=== PATIENT | male | born 1960 | race Caucasian/White ===

== ENCOUNTER 2019-02-22 06:30 | Emergency (ER) | payer OTHER ==
[2019-02-22] MEDS ORDERED: Sodium Chloride 0.9% 10 ML Syringe FLUSH PRN ×2 (07:24→08:05)
[2019-02-22] MEDS ORDERED: HYDROmorphone 1 MG/ML Syringe IVPUSH ONE (07:25)
[2019-02-22] MEDS ORDERED: Ondansetron 4 MG/2 ML SDV IVPUSH ONE (07:25)
--- NOTE | 2019-02-22 07:32 | EDM.PDOC ---
ED HPI GENERAL MEDICAL PROBLEM - General Chief Complaint: Back Pain or Injury Stated Complaint: 4 JOHNSTON ACCIDENT Time Seen by Provider: 02/22/19 07:30 Source of Information: Reports: Patient History Limitations: Reports: No Limitations - History of Present Illness INITIAL COMMENTS - FREE TEXT/NARRATIVE: pt was unloading a 4 johnston at 545 this am and he had the 4 johnston come down off of the pickup onto him . He injured his chest and he is having pain in his mid thoracic spine. He hurts alot when he takes a deep breath. Onset: Today, Sudden Duration: Hour(s): Location: Reports: Chest, Abdomen, Back Associated Symptoms: Reports: Chest Pain, Shortness of Breath, Other (pt has the sensation that he was not able to take a deep breath. ) Back Pain Score (Numeric/FACES): 10 - Related Data Allergies Allergy/AdvReac Type Severity Reaction Status Date / Time No Known Allergies Allergy Verified 02/22/19 06:46 Home Meds: Home Meds Aspirin [Ecotrin EC] 81 mg PO DAILY 02/22/19 [History] Famotidine [Pepcid] 20 mg PO DAILY 02/22/19 [History] Gabapentin [Neurontin] 1 cap PO BEDTIME 02/22/19 [History] Losartan/Hydrochlorothiazide [Hyzaar 50-12.5 Tablet] 1 each PO DAILY 02/22/19 [ History] atorvaSTATin [Lipitor] 20 mg PO BEDTIME 02/22/19 [History] metFORMIN HCl [Metformin HCl ER] 500 mg PO BID 02/22/19 [History] Past Medical History HEENT History: Reports: Impaired Vision Cardiovascular History: Reports: High Cholesterol, Hypertension Gastrointestinal History: Reports: GERD Musculoskeletal History: Reports: Fracture Other Musculoskeletal History: Ezra r lower leg with screw. thumb fx r hand, knee cap , ankle wrist pelvis. Endocrine/Metabolic History: Reports: Diabetes, Type II Oncologic (Cancer) History: Reports: Other (See Below) Other Oncologic History: slyiva gland removed as child for possible CA, - Infectious Disease History Infectious Disease History: Reports: Chicken Pox, Measles, Mumps - Past Surgical History GI Surgical History: Reports: Cholecystectomy, EGD Social & Family History - Tobacco Use Smoking Status *Q: Never Smoker Second Hand Smoke Exposure: No - Caffeine Use Caffeine Use: Reports: Soda - Recreational Drug Use Recreational Drug Use: No ED ROS GENERAL - Review of Systems Review Of Systems: See Below Constitutional: Reports: No Symptoms HEENT: Reports: No Symptoms Respiratory: Reports: Pleuritic Chest Pain, Other (pt is having alot of discomfort when he takes a deep breath. ) Cardiovascular: Reports: No Symptoms Endocrine: Reports: No Symptoms GI/Abdominal: Reports: Other (pt is having upper abdomanal pain) : Reports: No Symptoms Musculoskeletal: Reports: Back Pain, Other (pt is having pain between the shoulder blades. ) Skin: Reports: No Symptoms Neurological: Reports: No Symptoms Psychiatric: Reports: No Symptoms, Anxiety ED EXAM, UPPER BACK/NECK PAIN - Physical Exam Exam: See Below Text/Narrative:: pt had a 4 johnston come on top of his chest and his abdoman. He is now having alot of pain when he takes a deep breath. He is not vomiting. He hurt sin the upper abdoman. Exam Limited By: No Limitations General Appearance: Alert, Anxious, Moderate Distress Ears Exam: Normal TMs Nose Exam: Normal Inspection Throat/Mouth Exam: Normal Inspection Head Exam: Atraumatic Neck Exam: Non-Tender Cardiovascular/Respiratory: Regular Rate, Rhythm, Other (pt has good breath sounds bilaterally. ) GI/Abdominal: Soft, Tender (Male) Exam: Deferred Rectal (Males) Exam: Normal Exam Back Exam: Other (pt is tender from the mid thoracic down to the upper lumbar. ) Extremities: Normal Inspection Neurologic: Alert, Oriented x 3 Psychiatric: Anxious Course - Vital Signs Last Recorded V/S: Last Vital Signs Temp 37.1 C 02/22/19 06:48 Pulse 94 02/22/19 09:16 Resp 15 02/22/19 09:16 BP 133/84 02/22/19 09:16 Pulse Ox 97 02/22/19 09:16 - Orders/Labs/Meds Orders: Active Orders 24 hr Category Date Time Status Saline Lock Insert [OM.PC] Routine Oth 02/22/19 07:24 Ordered Labs: Laboratory Tests 02/22/19 02/22/19 02/22/19 Range/Units 07:29 07:46 07:46 WBC 7.4 (4.5-11.0) K/uL RBC 5.21 (4.30-5.90) M/uL Hgb 14.9 (12.0-15.0) g/dL Hct 45.2 (40.0-54.0) % MCV 87 (80-98) fL MCH 29 (27-31) pg MCHC 33 (32-36) % Plt Count 198 (150-400) K/uL Neut % (Auto) 71 H (36-66) % Lymph % (Auto) 14 L (24-44) % [place] % (Auto) 11 H (2-6) % Eos % (Auto) 4 (2-4) % Baso % (Auto) 1 (0-1) % Sodium 139 L (140-148) mmol/L Potassium 3.6 (3.6-5.2) mmol/L Chloride 101 (100-108) mmol/L Carbon Dioxide 26 (21-32) mmol/L Anion Gap 15.6 H (5.0-14.0) mmol/L BUN 11 (7-18) mg/dL Creatinine 1.0 (0.8-1.3) mg/dL Est Cr Clr Drug Dosing 58.33 mL/min Estimated GFR (MDRD) > 60 (>60) BUN/Creatinine Ratio Not Reportable Glucose 194 H (74-106) mg/dL Calcium 9.1 (8.5-10.1) mg/dL Total Bilirubin 1.2 H (0.2-1.0) mg/dL AST 40 H (15-37) U/L ALT 66 (12-78) U/L Alkaline Phosphatase 75 (46-116) U/L Total Protein 7.8 (6.4-8.2) g/dL Albumin 4.0 (3.4-5.0) g/dL Globulin 3.8 H (2.3-3.5) g/dL Albumin/Globulin Ratio 1.1 L (1.2-2.2) Urine Color Yellow (YELLOW) Urine Appearance Clear (CLEAR) Urine pH 5.5 (5.0-8.0) Ur Specific [place] 1.025 (1.008-1.030) Urine Protein 30 H (NEGATIVE) mg/dL Urine Glucose (UA) Negative (NEGATIVE) mg/dL Urine Ketones Negative (NEGATIVE) mg/dL Urine Occult Blood Negative (NEGATIVE) Urine Nitrite Negative (NEGATIVE) Urine Bilirubin Negative (NEGATIVE) Urine Urobilinogen 0.2 (0.2-1.0) EU/dL Ur Leukocyte Esterase Negative (NEGATIVE) Urine RBC 0-5 (0-5) Urine WBC 0-5 (0-5) Ur Epithelial Cells Few Amorphous Sediment Not seen Urine Bacteria Few Urine Mucus Not seen Meds: Medications Discontinued Medications Generic Name Dose Route Start Last Admin Trade Name Eddyq PRN Reason Stop Dose Admin Hydromorphone HCl 1 mg 02/22/19 07:25 02/22/19 07:43 Dilaudid IVPUSH 02/22/19 07:26 1 mg ONETIME ONE Administration Hydromorphone HCl 0.5 mg 02/22/19 09:22 02/22/19 09:31 Dilaudid IVPUSH 02/22/19 09:23 0.5 mg ONETIME ONE Administration Sodium Chloride 85 mls @ 3.5 mls/sec 02/22/19 08:15 02/22/19 08:44 Normal Saline IV 02/22/19 08:16 3.5 mls/sec ASDIRECTED ALYSHA Administration Iopamidol 150 ml 02/22/19 08:05 02/22/19 08:46 Isovue-300 (61%) IV 02/23/19 08:06 150 ml . DIRECTED PRN Administration RADIOLOGY EXAM Ketorolac Tromethamine 30 mg 02/22/19 10:32 02/22/19 10:38 Toradol IVPUSH 02/22/19 10:33 30 mg ONETIME ONE Administration Ondansetron HCl 4 mg 02/22/19 07:25 02/22/19 07:37 Zofran IVPUSH 02/22/19 07:26 4 mg ONETIME ONE Administration Sodium Chloride 10 ml 02/22/19 07:24 02/22/19 07:58 Saline Flush FLUSH 10 ml ASDIRECTED PRN Administration Keep Vein Open Sodium Chloride 10 ml 02/22/19 08:05 02/22/19 08:41 Saline Flush FLUSH 02/22/19 08:06 10 ml ONETIME PRN Administration per radiology protocol - Re-Assessments/Exams Free Text/Narrative Re-Assessment/Exam: 02/22/19 10:43 cat scan of the chest abdoman and pelvis was done which was neg. The thoracic spine was formated and did not reveal any fractures. He has been given dilaudid and he is more comfortable. Departure - Departure Time of Disposition: 10:32 Disposition: Home, Self-Care 01 Condition: Fair Clinical Impression: Chest wall pain, Thoracic spine pain - Discharge Information Instructions: Chest Wall Pain, [id number], Thoracic Strain, [id number] Referrals: PCP,None [Primary Care Provider] - Forms: ED Department Discharge Care Plan Goals: Motrin 600mg tid, baclofin 10mg bid to relax muscles, percocet 5/325 q6h prn for pain rtc if further symptoms,incenive spirometer use several times daily. no work for the next 4 days, - My Orders Last 24 Hours: My Active Orders 02/22/19 07:24 Saline Lock Insert [OM.PC] Routine - Assessment/Plan Last 24 Hours: My Active Orders 02/22/19 07:24 Saline Lock Insert [OM.PC] Routine
[2019-02-22] MEDS ORDERED: Iopamidol 612 MG/ML 150 ML Bottle IV PRN (08:05)
[2019-02-22] MEDS ORDERED: HYDROmorphone 0.5 MG/0.5 ML Syringe IVPUSH ONE (09:22)
--- NOTE | 2019-02-22 09:50 | CRLCT ---
Indication: 4 LANDEROS LANDED ON CHEST AND ABDOMEN Comparison: None available. Technique: CT of the chest, abdomen, and pelvis with intravenous contrast. Findings: No thoracic or abdominal aortic aneurysm. No dissection in the transverse, descending, or abdominal aorta. There is a much motion in the ascending aorta to evaluate for dissection. Mild atherosclerotic disease. The proximal arteries are patent. No pericardial effusion. No pleural effusion or pneumothorax. No central pulmonary artery embolism. No significant pulmonary opacities. The liver is normal in appearance without focal abnormalities. No intra or extrahepatic biliary ductal dilatation. Post cholecystectomy. The spleen, pancreas and bilateral adrenal glands appear unremarkable. The kidneys enhance symmetrically and there is no hydronephrosis. No evidence of bowel obstruction. No focal or diffuse bowel wall thickening. No free air or free fluid in the abdomen or pelvis. No significant retroperiteonal, pelvic, mesenteric, or inguinal lymphadenopathy. Bladder is normal. No aggressive appearing osseous lesions. Chronic dystrophic calcification at or near the anterior iliac spine most likely due to a prior avulsion injury. Impression: No definite acute traumatic injury to the chest, abdomen, or pelvis. Please note that all CT scans at this facility use dose modulation, iterative reconstruction, and/or weight-based dosing when appropriate to reduce radiation dose to as low as reasonably achievable. Dictated by Mainor Bernabe MD @ Feb 22 2019 9:34AM (Electronically Signed)
--- NOTE | 2019-02-22 09:58 | CRLCT ---
INDICATION: Four johnston landed on the chest. Pain. COMPARISON: None available. TECHNIQUE: CT of the thoracic spine. FINDINGS: Mild multi focal degenerative changes of the thoracic spine. No acute thoracic spine fracture. No listhesis. IMPRESSION: No acute fracture or listhesis of the thoracic spine. Please note that all CT scans at this facility use dose modulation, iterative reconstruction, and/or weight-based dosing when appropriate to reduce radiation dose to as low as reasonably achievable. Dictated by Mainor Bernabe MD @ Feb 22 2019 9:52AM (Electronically Signed)
[2019-02-22] MEDS ORDERED: Ketorolac 30 MG/ML SDV IVPUSH ONE (10:32)
== END 2019-02-22 10:50 | disposition home or self-care (01) ==
LOC: JP.ED 06:30
DX: R07.89 Other chest pain (principal); M54.6 Pain in thoracic spine; E78.00 Pure hypercholesterolemia, unspecified; I10 Essential (primary) hypertension; E11.9 Type 2 diabetes mellitus without complications; Z79.82 Long term (current) use of aspirin; Z79.899 Other long term (current) drug therapy; Z79.84 Long term (current) use of oral hypoglycemic drugs; W22.8XXA Striking against or struck by other objects, initial encounter; Y93.89 Activity, other specified
CPT/HCPCS: 36415; 71260; 74177; 76377; 80053; 81001; 85025; 96374; 96375; 96376; 99285; J1170; J1885; J2405; J7030

== ENCOUNTER 2020-09-04 19:29 | Emergency (ER) | payer OTHER ==
[2020-09-04] MEDS ORDERED: Acetaminophen 500 MG Tab PO ONE (20:58)
--- NOTE | 2020-09-04 20:59 | EDM.PDOC ---
ED HPI GENERAL MEDICAL PROBLEM - General Chief Complaint: ENT Problem Stated Complaint: L SIDE FACE SWOLLEN / PAINFUL Time Seen by Provider: 09/04/20 20:45 Source of Information: Reports: Patient, RN Notes Reviewed History Limitations: Reports: No Limitations - History of Present Illness INITIAL COMMENTS - FREE TEXT/NARRATIVE: Higinio presents today for complaints of pain and edema to left side fo face for three days. He reports the pain and edema became much worse today. He states he has been taking ibuprofen 800mg for pain a few times a day without much help. He has tried use of ice for swelling. He denies difficulty with eating, drinking, swallowing, fever, chills, nausea, vomiting, change in bowel/bladder or other concerns. History of DM II, last A1C 7.9 Positive COVID19 test 10 days ago. Symptoms of sinus congestion and loss of taste/smell only. Left Face/Facial Pain Score (Numeric/FACES): 10 - Related Data Allergies Allergy/AdvReac Type Severity Reaction Status Date / Time No Known Allergies Allergy Verified 09/04/20 20:19 Home Meds: Home Meds Aspirin [Ecotrin EC] 81 mg PO DAILY 02/22/19 [History] Famotidine [Pepcid] 20 mg PO DAILY 02/22/19 [History] Gabapentin [Neurontin] 1 cap PO BEDTIME 02/22/19 [History] Losartan/Hydrochlorothiazide [Hyzaar 50-12.5 Tablet] 1 each PO DAILY 02/22/19 [History] atorvaSTATin [Lipitor] 20 mg PO BEDTIME 02/22/19 [History] metFORMIN HCl [Metformin HCl ER] 500 mg PO BID 02/22/19 [History] Past Medical History HEENT History: Reports: Impaired Vision Cardiovascular History: Reports: High Cholesterol, Hypertension Gastrointestinal History: Reports: GERD Musculoskeletal History: Reports: Fracture Other Musculoskeletal History: Ezra r lower leg with screw. thumb fx r hand, knee cap , ankle wrist pelvis. Endocrine/Metabolic History: Reports: Diabetes, Type II Oncologic (Cancer) History: Reports: Other (See Below) Other Oncologic History: slyiva gland removed as child for possible CA, - Infectious Disease History Infectious Disease History: Reports: Chicken Pox, Measles, Mumps, Novel Coronavirus - Past Surgical History GI Surgical History: Reports: Cholecystectomy, EGD Social & Family History - Tobacco Use Tobacco Use Status *Q: Never Tobacco User Second Hand Smoke Exposure: No - Caffeine Use Caffeine Use: Reports: Soda - Recreational Drug Use Recreational Drug Use: No ED ROS ENT - Review of Systems Review Of Systems: See Below Constitutional: Reports: No Symptoms HEENT: Reports: Dental Pain (left upper and lower jaw. ), Sinus Problem. Denies: Ear Discharge, Ear Pain, Eye Discharge, Nose Pain, Throat Pain, Throat Swelling Respiratory: Reports: No Symptoms Cardiovascular: Reports: No Symptoms Endocrine: Reports: No Symptoms GI/Abdominal: Reports: No Symptoms : Reports: No Symptoms Musculoskeletal: Reports: No Symptoms Skin: Reports: No Symptoms Neurological: Reports: No Symptoms Psychiatric: Reports: No Symptoms Hematologic/Lymphatic: Reports: No Symptoms Immunologic: Reports: No Symptoms ED EXAM, ENT - Physical Exam Exam: See Below Exam Limited By: No Limitations General Appearance: Alert, WD/WN, Mild Distress Eye Exam: Bilateral Eye: Normal Inspection, PERRL Ears: Normal External Exam, Normal Canal, Hearing Grossly Normal, TM Dullness (left TM, no perforation). No: Mastoid Swelling, Mastoid Tenderness, TM Bulging, TM Erythema Mouth/Throat: Normal Lips, Dental Tenderness, Gum Swelling, Other (noted gum edema, pain, tenderness left cheek, no lesions noted). No: Tongue Swelling, Tonsillar Erythema, Tonsillar Exudates, Tonsillar Swelling, Trismus, Uvular Deviation, Uvular Edema Head: Facial Swelling, Facial Tenderness (left face from cheek to upper neck). No: Facial Ecchymosis, Facial Lacerations Neck: Full Range of Motion, Lymphadenopathy (L) Respiratory/Chest: No Respiratory Distress, Lungs Clear, Normal Breath Sounds, No Accessory Muscle Use, Chest Non-Tender. No: Crackles, Rales, Rhonchi, Wheezing, Stridor Cardiovascular: Normal Peripheral Pulses, Regular Rate, Rhythm, No Edema, No Gallop, No Murmur, No Rub Back: Normal Inspection, Full Range of Motion. No: CVA Tenderness (R), CVA Tenderness (L), Decreased Range of Motion Extremities: Normal Inspection, Normal Range of Motion, Non-Tender, No Pedal Edema, Normal Capillary Refill Neurological: Alert, Oriented, Normal Cognition, Normal Gait, Normal Reflexes, No Motor/Sensory Deficits Psychiatric: Normal Affect, Normal Mood Skin: Warm, Dry, Erythema (left face/cheek) Lymphatic: No Adenopathy Course - Vital Signs Last Recorded V/S: Last Vital Signs Temp 36.5 C 09/04/20 20:26 Pulse 82 09/04/20 20:26 Resp 16 09/04/20 20:26 BP 184/93 H 09/04/20 20:26 Pulse Ox 98 09/04/20 20:26 Recheck BP 155/82 at 2130 - Orders/Labs/Meds Labs: Laboratory Tests 09/04/20 09/04/20 Range/Units 21:10 21:10 WBC 7.9 (4.5-11.0) K/uL RBC 5.14 (4.30-5.90) M/uL Hgb 14.6 (12.0-15.0) g/dL Hct 43.8 (40.0-54.0) % MCV 85 (80-98) fL MCH 28 (27-31) pg MCHC 33 (32-36) % Plt Count 216 (150-400) K/uL Neut % (Auto) 55.5 (36-66) % Lymph % (Auto) 32.6 (24-44) % [place] % (Auto) 8.5 H (2-6) % Eos % (Auto) 2.8 (2-4) % Baso % (Auto) 0.6 (0-1) % Sodium 144 (140-148) mmol/L Potassium 3.2 L (3.6-5.2) mmol/L Chloride 102 (100-108) mmol/L Carbon Dioxide 32 (21-32) mmol/L Anion Gap 13.2 (5.0-14.0) mmol/L BUN 10 (7-18) mg/dL Creatinine 1.0 (0.8-1.3) mg/dL Est Cr Clr Drug Dosing TNP Estimated GFR (MDRD) > 60 (>60) Glucose 124 H (74-106) mg/dL Calcium 9.0 (8.5-10.1) mg/dL CBC, BMP reviewed no acute findings noted. Reviewed with patient, he will start use of clindamycin and metronidazole as directed. NSAID and hydrocodone as directed for pain. Follow up with dental on Sunday for an appointment. Return as needed. Meds: Medications Discontinued Medications Generic Name Dose Route Start Last Admin Trade Name Freq PRN Reason Stop Dose Admin Acetaminophen 1,000 mg 09/04/20 20:58 09/04/20 21:17 Acetaminophen 500 Mg Tab PO 09/04/20 20:59 1,000 mg ONETIME ONE Administration Clindamycin HCl 300 mg 09/04/20 21:24 Clindamycin Hcl 150 Mg Cap PO 09/04/20 21:25 ONETIME ONE Metronidazole 500 mg 09/04/20 21:24 Metronidazole 250 Mg Tab PO 09/04/20 21:25 ONETIME ONE Departure - Departure Time of Disposition: 21:33 Disposition: Home, Self-Care 01 Condition: Good Clinical Impression: Dental abscess - Discharge Information *PRESCRIPTION DRUG MONITORING PROGRAM REVIEWED*: No *COPY OF PRESCRIPTION DRUG MONITORING REPORT IN PATIENT JUAN: No Instructions: Dental Abscess, [id number] Referrals: PCP,None [Primary Care Provider] - Forms: ED Department Discharge Additional Instructions: You have been evaluated and treated for a dental abscess. Lab work shows a localized infection. Potassium is low - eat two bananas per day for 3 days, drink two bottles sugar free gatorade a day for 5 days. Take clindamycin 300mg (two of the 150mg tablets) every 6 hours for infection until gone. Take metronidazole 500mg every 8 hours for infection until gone. Take Ibuprofen or naproxen as needed for pain with food. Take hydrocodone as directed, instymed fo #18 tablets for three days. Return for worsening, issues or concerns. Sepsis Event Note (ED) - Evaluation Sepsis Screening Result: No Definite Risk - Focused Exam Vital Signs: Vital Signs Temp Pulse Resp BP Pulse Ox 09/04/20 20:26 36.5 C 82 16 184/93 H 98 - Assessment/Plan Assessment:: Dental Abscess Plan: Patient evaluated and treated for a dental abscess. Take clindamycin 300mg (two of the 150mg tablets) every 6 hours for infection until gone. Take metronidazole 500mg every 8 hours for infection until gone. Take Ibuprofen or naproxen as needed for pain with food. Take hydrocodone as directed, instymed fo #18 tablets for three days. Education provided on signs of worsening, issues, difficulty breathing or other concerns. Patient verbalized understanding. Return for worsening, issues or concerns.
[2020-09-04] MEDS ORDERED: Clindamycin HCl 150 MG Cap PO ONE (21:24)
[2020-09-04] MEDS ORDERED: metroNIDAZOLE 250 MG Tab PO ONE (21:24)
== END 2020-09-04 21:48 | disposition home or self-care (01) ==
LOC: JP.ED 19:29
DX: K04.7 Periapical abscess without sinus (principal); E11.9 Type 2 diabetes mellitus without complications; E78.00 Pure hypercholesterolemia, unspecified; I10 Essential (primary) hypertension; K21.9 Gastro-esophageal reflux disease without esophagitis; Z79.84 Long term (current) use of oral hypoglycemic drugs; Z79.82 Long term (current) use of aspirin; Z79.899 Other long term (current) drug therapy
CPT/HCPCS: 36415; 80048; 85025; 99283; A9270

== ENCOUNTER 2021-04-05 12:28 | Emergency (ER) | payer OTHER ==
[2021-04-05] MEDS ORDERED: Ketorolac 30 MG/ML SDV IM ONE (12:59)
--- NOTE | 2021-04-05 13:08 | EDM.PDOC ---
ED HPI GENERAL MEDICAL PROBLEM - General Chief Complaint: Back Pain or Injury Stated Complaint: FELL AND HURT MID BACK Time Seen by Provider: 04/05/21 13:07 Source of Information: Reports: Patient, Family, RN Notes Reviewed History Limitations: Reports: No Limitations - History of Present Illness INITIAL COMMENTS - FREE TEXT/NARRATIVE: 60-year-old gentleman presents emergency department day complaint of mid back pain, he injured himself when he was going down the steps slipped landed in the middle of his back now is experiencing severe pain going around to the front difficult for him to take a big breath Middle Back Pain Score (Numeric/FACES): 10 - Related Data Allergies Allergy/AdvReac Type Severity Reaction Status Date / Time No Known Allergies Allergy Verified 04/05/21 13:01 Home Meds: Home Meds NK [No Known Home Meds] 04/05/21 [History] Past Medical History HEENT History: Reports: Impaired Vision Cardiovascular History: Reports: High Cholesterol, Hypertension Gastrointestinal History: Reports: GERD Musculoskeletal History: Reports: Fracture Other Musculoskeletal History: thumb fx r hand, knee cap , ankle wrist pelvis. Endocrine/Metabolic History: Reports: Diabetes, Type II Oncologic (Cancer) History: Reports: Other (See Below) Other Oncologic History: slyiva gland removed as child for possible CA, - Infectious Disease History Infectious Disease History: Reports: Chicken Pox, Measles, Mumps, Novel Coronavirus - Past Surgical History HEENT Surgical History: Reports: Other (See Below) Other HEENT Surgeries/Procedures: saliva gland removed on the left. GI Surgical History: Reports: Cholecystectomy, EGD Musculoskeletal Surgical History: Reports: Other (See Below) Other Musculoskeletal Surgeries/Procedures:: sanjiv in lower leg. Social & Family History - Tobacco Use Tobacco Use Status *Q: Never Tobacco User - Caffeine Use Caffeine Use: Reports: Soda - Recreational Drug Use Recreational Drug Use: No ED ROS GENERAL - Review of Systems Review Of Systems: See Below Respiratory: Reports: Other (Pain with a deep breath) Musculoskeletal: Reports: Back Pain ED EXAM,LOWER BACK PAIN/INJURY - Physical Exam Exam: See Below Text/Narrative:: Examination of the thorax on appreciate any erythema there is no edema there is no bruising noted however he is tender from approximately the T5 region to the T8 region spinally Exam Limited By: No Limitations General Appearance: Alert, Mild Distress Respiratory/Chest: No Respiratory Distress, Lungs Clear, Normal Breath Sounds, No Accessory Muscle Use Cardiovascular: Regular Rate, Rhythm, No Murmur Course - Vital Signs Last Recorded V/S: Last Vital Signs Temp 97.7 F 04/05/21 13:00 Pulse 85 04/05/21 15:00 Resp 15 04/05/21 13:00 BP 167/96 H 04/05/21 15:00 Pulse Ox 95 04/05/21 15:00 - Orders/Labs/Meds Meds: Medications Discontinued Medications Generic Name Dose Route Start Last Admin Trade Name Guero PRN Reason Stop Dose Admin Hydromorphone HCl 1 mg 04/05/21 14:19 04/05/21 14:54 Hydromorphone 1 Mg/Ml Syringe IM 04/05/21 14:20 1 mg ONETIME ONE Administration Ketorolac Tromethamine 30 mg 04/05/21 12:59 04/05/21 13:11 Ketorolac 30 Mg/Ml Sdv IM 04/05/21 13:00 30 mg ONETIME ONE Administration Departure - Departure Time of Disposition: 15:16 Disposition: Home, Self-Care 01 Condition: Fair Clinical Impression: Chest wall pain - Discharge Information Instructions: Chest Wall Pain, [id number] Referrals: PCP,None [Primary Care Provider] - Forms: ED Department Discharge Additional Instructions: Use ibuprofen for baseline pain control use hydrocodone for breakthrough pain, please followup with your primary care provider in 3-5 days if not better, please call return to the emergency department with worsening of symptoms. Sepsis Event Note (ED) - Evaluation Sepsis Screening Result: No Definite Risk - Focused Exam Vital Signs: Vital Signs Temp Pulse Resp BP Pulse Ox 04/05/21 15:00 85 167/96 H 95 04/05/21 14:14 82 162/98 H 95 04/05/21 13:00 97.7 F 81 15 191/101 H 96 04/05/21 12:46 97.7 F 81 15 191/101 H 96 - Assessment/Plan Plan: Assessment Acuity = acute Site and laterality = chest wall pain thoracic region Etiology = secondary to trauma Manifestations = none Location of injury = Home Lab values = thoracic x-ray reveals no fracture Plan I talked about the possibility of rib fracture that could not be identified on x-ray he is going to do watchful waiting pain was brought under control combination hydromorphone and Toradol prescription written for hydrocodone 5/325 1 tab p.o. 3 times daily as needed total #20 and follow-up with his primary care in the next 3 to 5 days if no improvement This note was dictated using [employer] voice recognition software please call with any questions on syntax or grammar.
--- NOTE | 2021-04-05 13:57 | CR ---
Thoracic Spine 2V CLINICAL HISTORY: Pain, T6-T8 FINDINGS: The vertebral bodies are normal in height. Disc spaces are narrowed. There is mild diffuse osteophytosis. There is moderate spondylosis at T12-L1. The pedicles are unremarkable. Impression: Diffuse degenerative disc changes with spondylosis
[2021-04-05] MEDS ORDERED: HYDROmorphone 1 MG/ML Syringe IM ONE (14:19)
== END 2021-04-05 15:53 | disposition home or self-care (01) ==
LOC: JP.ED 12:28
DX: R07.89 Other chest pain (principal); I10 Essential (primary) hypertension; E11.9 Type 2 diabetes mellitus without complications
CPT/HCPCS: 72070; 96372; 99283; J1170; J1885

== ENCOUNTER 2021-04-11 11:56 | Emergency (ER) | payer OTHER ==
--- NOTE | 2021-04-11 13:26 | EDM.PDOC ---
ED HPI GENERAL MEDICAL PROBLEM - General Chief Complaint: Back Pain or Injury Stated Complaint: MID BACK PAIN FROM FALL Time Seen by Provider: 04/11/21 13:16 Source of Information: Reports: Patient, RN Notes Reviewed History Limitations: Reports: No Limitations - History of Present Illness INITIAL COMMENTS - FREE TEXT/NARRATIVE: 60-year-old gentleman presents emergency department day complaint of chest pain he does have a history of a fall about a week ago where he fell and landed on the middle of his back thoracic x-rays at that time were negative but the thing that he has noticed now is he is developed some swelling in his lower extremities bilaterally over the last 3 to 4 days., He has felt nauseated no fevers 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 AT 06 00 TODAY Middle Posterior Back Pain Score (Numeric/FACES): 10 - Related Data Allergies Allergy/AdvReac Type Severity Reaction Status Date / Time No Known Allergies Allergy Verified 04/11/21 12:53 Home Meds: Home Meds Acetaminophen/HYDROcodone [HYDROcodone-Acetaminophen 5-325 MG *] 1 tab PO Q4H PRN 04/11/21 [History] Past Medical History HEENT History: Reports: Impaired Vision Cardiovascular History: Reports: High Cholesterol, Hypertension Gastrointestinal History: Reports: GERD Musculoskeletal History: Reports: Fracture Other Musculoskeletal History: thumb fx r hand, knee cap , ankle wrist pelvis. 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 Cardiovascular Surgical History: Reports: None GI Surgical History: Reports: Cholecystectomy, EGD Endocrine Surgical History: Reports: None Neurological Surgical History: Reports: None Musculoskeletal Surgical History: Reports: Other (See Below) Other Musculoskeletal Surgeries/Procedures:: sanjiv in lower leg. Oncologic Surgical History: Reports: None Dermatological Surgical History: Reports: None Social & Family History - Family History Family Medical History: No Pertinent Family History - Tobacco Use Tobacco Use Status *Q: Former Tobacco User Used Tobacco, but Quit: Yes Month/Year Tobacco Last Used: 1984 - Caffeine Use Caffeine Use: Reports: Soda - Recreational Drug Use Recreational Drug Use: No ED ROS GENERAL - Review of Systems Review Of Systems: See Below Constitutional: Reports: No Symptoms Respiratory: Reports: Shortness of Breath Cardiovascular: Reports: Chest Pain, Edema GI/Abdominal: Reports: Nausea ED EXAM, GENERAL - Physical Exam Exam: See Below Exam Limited By: No Limitations General Appearance: Alert, WD/WN, No Apparent Distress Respiratory/Chest: No Respiratory Distress, Lungs Clear, Normal Breath Sounds, No Accessory Muscle Use, Chest Non-Tender Cardiovascular: Regular Rate, Rhythm, No Murmur GI/Abdominal: Soft, Non-Tender Extremities: Pedal Edema #1 Interpretation EKG Date: 04/11/21 Time: 13:35 Rhythm: NSR [place]: Normal P-Wave: Present QRS: Normal ST-T: Normal QT: Normal Comparison: NA - No Prior EKG Course - Vital Signs Last Recorded V/S: Last Vital Signs Temp 97.3 F 04/11/21 12:28 Pulse 78 04/11/21 16:17 Resp 19 04/11/21 16:17 BP 185/92 H 04/11/21 16:17 Pulse Ox 94 L 04/11/21 16:17 - Orders/Labs/Meds Orders: Active Orders 24 hr Category Date Time Status Cardiac Monitoring [RC] .As Directed Care 04/11/21 13:22 Active Peripheral IV Care [RC] . DIRECTED Care 04/11/21 13:23 Active Chest w Cont [CT] Stat Exams 04/11/21 15:05 Taken Iopamidol [Isovue-300 (61%)] Med 04/11/21 15:09 Active 100 ml IV . DIRECTED PRN Sodium Chloride 0.9% [Normal Saline] 1,000 ml Med 04/11/21 15:15 Active IV ASDIRECTED Sodium Chloride 0.9% [Normal Saline] 100 ml Med 04/11/21 15:15 Active IV ASDIRECTED Sodium Chloride 0.9% [Saline Flush] Med 04/11/21 13:22 Active 10 ml FLUSH ASDIRECTED PRN Peripheral IV Insertion Adult [OM.PC] Stat Oth 04/11/21 13:22 Ordered Saline Lock Insert [OM.PC] Stat Oth 04/11/21 13:22 Ordered EKG 12 Lead [EK] Stat Ther 04/11/21 13:23 Ordered Medication Orders Sodium Chloride (Normal Saline) 1,000 mls @ 500 mls/hr IV ASDIRECTED ALYSHA Sodium Chloride (Normal Saline) 100 mls @ 3 mls/sec IV ASDIRECTED ALYSHA Stop: 04/11/21 18:00 Last Admin: 04/11/21 15:22 Dose: 3 mls/sec Documented by: ALLEGRA Iopamidol (Iopamidol 612 Mg/Ml 100 Ml Bottle) 100 ml IV . DIRECTED PRN PRN Reason: RADIOLOGY EXAM Stop: 04/12/21 15:10 Last Admin: 04/11/21 15:22 Dose: 100 ml Documented by: ALLEGRA Sodium Chloride (Sodium Chloride 0.9% 10 Ml Syringe) 10 ml FLUSH ASDIRECTED PRN PRN Reason: Keep Vein Open Last Admin: 04/11/21 15:22 Dose: 10 ml Documented by: Admin: 04/11/21 13:53 Dose: 10 ml Documented by: Admin: 04/11/21 13:43 Dose: 10 ml Documented by: BALDO Labs: Laboratory Tests 04/11/21 04/11/21 04/11/21 Range/Units 13:40 13:40 13:40 WBC 8.3 (4.5-11.0) K/uL RBC 5.55 (4.30-5.90) M/uL Hgb 15.7 H (12.0-15.0) g/dL Hct 46.2 (40.0-54.0) % MCV 83 (80-98) fL MCH 28 (27-31) pg MCHC 34 (32-36) % Plt Count 214 (150-400) K/uL Neut % (Auto) 54.5 (36-66) % Lymph % (Auto) 33.9 (24-44) % [place] % (Auto) 7.2 H (2-6) % Eos % (Auto) 3.4 (2-4) % Baso % (Auto) 1.0 (0-1) % Sodium 138 L (140-148) mmol/L Potassium 3.7 (3.6-5.2) mmol/L Chloride 100 (100-108) mmol/L Carbon Dioxide 30 (21-32) mmol/L Anion Gap 11.7 (5.0-14.0) mmol/L BUN 14 (7-18) mg/dL Creatinine 1.1 (0.8-1.3) mg/dL Est Cr Clr Drug Dosing 70.82 mL/min Estimated GFR (MDRD) > 60 (>60) Glucose 220 H (74-106) mg/dL Lactic Acid 1.1 (0.4-2.0) mmol/L Calcium 9.0 (8.5-10.1) mg/dL Total Bilirubin 1.1 H (0.2-1.0) mg/dL AST 22 (15-37) U/L ALT 43 (12-78) U/L Alkaline Phosphatase 68 (46-116) U/L Troponin I High Sens 7.0 (<=60.3) pg/mL NT-Pro-B Natriuret Pep 89 (5-125) pg/mL Total Protein 7.3 (6.4-8.2) g/dL Albumin 3.9 (3.4-5.0) g/dL Globulin 3.4 (2.3-3.5) g/dL Albumin/Globulin Ratio 1.1 L (1.2-2.2) Meds: Medications Generic Name Dose Route Start Last Admin Trade Name Freq PRN Reason Stop Dose Admin Sodium Chloride 1,000 mls @ 500 mls/hr 04/11/21 15:15 Normal Saline IV ASDIRECTED ALYSHA Sodium Chloride 100 mls @ 3 mls/sec 04/11/21 15:15 04/11/21 15:22 Normal Saline IV 04/11/21 18:00 3 mls/sec ASDIRECTED ALYSHA Administration Iopamidol 100 ml 04/11/21 15:09 04/11/21 15:22 Iopamidol 612 Mg/Ml 100 Ml Bottle IV 04/12/21 15:10 100 ml . DIRECTED PRN Administration RADIOLOGY EXAM Sodium Chloride 10 ml 04/11/21 13:22 04/11/21 15:22 Sodium Chloride 0.9% 10 Ml Syringe FLUSH 10 ml ASDIRECTED PRN Administration Keep Vein Open Discontinued Medications Generic Name Dose Route Start Last Admin Trade Name Freq PRN Reason Stop Dose Admin Hydromorphone HCl 0.5 mg 04/11/21 14:09 04/11/21 14:16 Hydromorphone 0.5 Mg/0.5 Ml Syringe IVPUSH 04/11/21 14:10 0.5 mg ONETIME ONE Administration Ondansetron HCl 4 mg 04/11/21 15:25 04/11/21 16:49 Ondansetron 4 Mg/2 Ml Sdv IVPUSH 04/11/21 15:26 4 mg ONETIME ONE Administration Sodium Chloride 10 ml 04/11/21 15:09 04/11/21 16:43 Sodium Chloride 0.9% 10 Ml Sdv FLUSH 04/11/21 15:10 Not Given ONETIME ONE Departure - Departure Time of Disposition: 17:09 Disposition: Home, Self-Care 01 Condition: Fair Clinical Impression: Chest wall pain Instructions: Chest Wall Pain, [id number] Referrals: PCP,None [Primary Care Provider] - Forms: ED Department Discharge, ED Department Discharge, ED Return to Work/School Form Sepsis Event Note (ED) - Evaluation Sepsis Screening Result: No Definite Risk - Focused Exam Vital Signs: Vital Signs Temp Pulse Resp BP Pulse Ox 04/11/21 16:17 78 19 185/92 H 94 L 04/11/21 15:43 73 21 H 204/102 H 96 04/11/21 14:38 74 19 170/83 H 92 L 04/11/21 13:15 74 16 151/67 H 97 04/11/21 12:28 97.3 F 74 16 198/106 H 97 - My Orders Last 24 Hours: My Active Orders 04/11/21 13:22 Cardiac Monitoring [RC] .As Directed Sodium Chloride 0.9% [Saline Flush] 10 ml FLUSH ASDIRECTED PRN Peripheral IV Insertion Adult [OM.PC] Stat Saline Lock Insert [OM.PC] Stat 04/11/21 13:23 Peripheral IV Care [RC] . DIRECTED EKG 12 Lead [EK] Stat 04/11/21 15:05 Chest w Cont [CT] Stat 04/11/21 15:09 Iopamidol [Isovue-300 (61%)] 100 ml IV . DIRECTED PRN 04/11/21 15:15 Sodium Chloride 0.9% [Normal Saline] 1,000 ml IV ASDIRECTED Sodium Chloride 0.9% [Normal Saline] 100 ml IV ASDIRECTED - Assessment/Plan Last 24 Hours: My Active Orders 04/11/21 13:22 Cardiac Monitoring [RC] .As Directed Sodium Chloride 0.9% [Saline Flush] 10 ml FLUSH ASDIRECTED PRN Peripheral IV Insertion Adult [OM.PC] Stat Saline Lock Insert [OM.PC] Stat 04/11/21 13:23 Peripheral IV Care [RC] . DIRECTED EKG 12 Lead [EK] Stat 04/11/21 15:05 Chest w Cont [CT] Stat 04/11/21 15:09 Iopamidol [Isovue-300 (61%)] 100 ml IV . DIRECTED PRN 04/11/21 15:15 Sodium Chloride 0.9% [Normal Saline] 1,000 ml IV ASDIRECTED Sodium Chloride 0.9% [Normal Saline] 100 ml IV ASDIRECTED Plan: Assessment Acuity = acute Site and laterality = chest wall pain Etiology = secondary trauma Manifestations = none Location of injury = Home Lab values = CBC CMP unremarkable troponin was negative BNP was negative lactic acid negative procalcitonin negative CT scan of the chest reveals no acute process Plan I did review lab work CT scan results with him believe the pain in the chest is coming from the recent trauma he is about 1 week out from landing in the middle of his back on some steps. The leg edema he does admit to me is not new he does spend a lot of time standing at his job I am suspicious this is venous insufficiency we will have him follow-up with her primary care which she does not have at this time for further evaluation and treatment prescription for Percocet 5/325 1 tab p.o. 3 times daily every 6 hours as needed total #12 This note was dictated using [employer] voice recognition software please call with any questions on syntax or grammar.
[2021-04-11] MEDS: Sodium Chloride 0.9% 10 ML Syringe FLUSH PRN ×3 (13:43→15:22)
[2021-04-11] MEDS ORDERED: HYDROmorphone 0.5 MG/0.5 ML Syringe IVPUSH ONE (14:09)
--- NOTE | 2021-04-11 14:36 | CR ---
CHEST: 2 view CLINICAL HISTORY:Chest pain COMPARISON:CT 2019 FINDINGS: There is less than optimal inspiration. There is generalized prominence of the lung markings. No alveolar infiltrates are seen. Heart and pulmonary vascularity are normal. Impression: Generalized prominence of lung markings. This is exaggerated by patient's less than optimal inspiration. Diffuse pneumonitis cannot be absolutely excluded. Clinical correlation is.
[2021-04-11] MEDS ORDERED: Sodium Chloride 0.9% 10 ML SDV FLUSH ONE (15:09)
[2021-04-11] MEDS ORDERED: Iopamidol 612 MG/ML 100 ML Bottle IV PRN (15:09)
[2021-04-11] MEDS ORDERED: Sodium Chloride 0.9% 1,000 ML IV SCH (15:15)
[2021-04-11] MEDS ORDERED: Sodium Chloride 0.9% 100 ML IV SCH (15:15)
[2021-04-11] MEDS ORDERED: Ondansetron 4 MG/2 ML SDV IVPUSH ONE (15:25)
--- NOTE | 2021-04-12 06:53 | CRLCT ---
Final Report: INDICATION: Chest pain, trauma 4 days ago, fall TECHNIQUE: CT chest with i.v. contrast during the venous phase. Coronal and sagittal reformats were obtained. CONTRAST: 100 mL Isovue 300 COMPARISON: 02/22/2019 FINDINGS: Cardiovascular: The heart has an unremarkable appearance and size. The pulmonary arteries are unremarkable in appearance. No sign of aneurysm or dissection in the thoracic aorta. Mediastinum: No mass or adenopathy seen. Lung: No pulmonary contusion, laceration or pneumothorax is seen. Pleura and pericardium: No sign of pleural effusion seen. No significant pericardial effusion is present. Chest wall and axilla: No mass or adenopathy seen. Bone: Unremarkable for age. Upper abdomen: Unremarkable. IMPRESSION: 1. Unremarkable CT appearance of the chest. Dictated by Alex Dotson MD @ 04/11/2021 4:26:29 PM Please note that all CT scans at this facility use dose modulation, iterative reconstruction, and/or weight-based dosing when appropriate to reduce radiation dose to as low as reasonably achievable. Dictated by: Alex Dotson MD @ 04/11/2021 16:29:47 (Electronic Signature) MTDD
== END 2021-04-11 17:21 | disposition home or self-care (01) ==
LOC: JP.ED 11:56
DX: R07.89 Other chest pain (principal); E78.00 Pure hypercholesterolemia, unspecified; I10 Essential (primary) hypertension; K21.9 Gastro-esophageal reflux disease without esophagitis; E11.9 Type 2 diabetes mellitus without complications; Z87.891 Personal history of nicotine dependence
CPT/HCPCS: 36415; 71046; 71260; 80053; 83605; 83880; 84484; 85025; 93005; 96374; 96375; 99285; J1170; J2405; Q9967

== ENCOUNTER 2023-06-08 18:12 | Emergency (ER) | payer BC, OTHER ==
[2023-06-08 18:47] LABS: BASOPHILS ABSOLUTE AUTO 0.12 K/uL (0.00-0.10); BASOPHILS PERCENT AUTO 1.5 % (0.1-1.3); EOSINOPHILS ABSOLUTE AUTO 0.44 K/uL (0.00-0.40); EOSINOPHILS PERCENT AUTO 5.4 % (0.0-5.4); HEMATOCRIT 44.9 % (38.4-49.7); HEMOGLOBIN 15.4 g/dL (12.9-16.9); IMMATURE GRAN PERCENT AUTO 0.2 % (0.0-0.7); LYMPHOCYTES ABSOLUTE AUTO 2.75 K/uL (0.8-3.3); LYMPHOCYTES PERCENT AUTO 33.8 % (11.4-47.7); MEAN CORPUSCULAR HEMOGLOBIN 28.6 pg (31.6-35.5); MEAN CORPUSCULAR HGB CONC 34.3 g/dL (31.6-35.5); MEAN CORPUSCULAR VOLUME 83.5 fL (81.4-99.0); MONOCYTES ABSOLUTE AUTO 0.46 K/uL (0.20-0.90); MONOCYTES PERCENT AUTO 5.7 % (3.3-12.6); NEUTROPHILS ABSOLUTE AUTO 4.34 K/uL (1.0-7.6); NEUTROPHILS PERCENT AUTO 53.4 % (40.0-78.1); PLATELET COUNT,PLT 236 K/uL (130-375); RED BLOOD CELL COUNT 5.38 M/uL (4.14-5.76); WHITE BLOOD CELL COUNT,WBC 8.1 K/uL (3.2-11.0)
[2023-06-08 18:48] LABS: IMMATURE GRAN ABSOLUTE AUTO 0.02 K/uL (0.00-0.23)
[2023-06-08 19:12] LABS: ANION GAP 12.4 mmol/L (5.0-14.0); CALCIUM 8.9 mg/dL (8.5-10.1); CREATININE 1.2 mg/dL (0.8-1.3); EST CRCL DRUG DOSING (CG) 61.2 mL/min; POTASSIUM,K 3.4 mmol/L (3.6-5.2); TROPONIN I HIGH SENSITIVITY 4.7 pg/mL (<=60.3)
== END 2023-06-08 19:42 | disposition home or self-care (01) ==
LOC: JP.ED 18:12
DX: R07.89 Other chest pain (principal); I10 Essential (primary) hypertension; E78.00 Pure hypercholesterolemia, unspecified; K21.9 Gastro-esophageal reflux disease without esophagitis; E11.9 Type 2 diabetes mellitus without complications; Z86.16 Personal history of COVID-19; Z87.891 Personal history of nicotine dependence; Z79.82 Long term (current) use of aspirin; Z79.84 Long term (current) use of oral hypoglycemic drugs; Z79.899 Other long term (current) drug therapy
CPT/HCPCS: 36415; 71046; 71046-26; 80048; 84484; 85025; 93005; 99285

== ENCOUNTER 2024-04-29 06:18 | Emergency (ER) | payer BC | END 2024-04-29 06:48 | disposition home or self-care (01) | LOC: JP.ED 06:18 | DX: M62.830 Muscle spasm of back (principal); I10 Essential (primary) hypertension; K21.9 Gastro-esophageal reflux disease without esophagitis; E11.9 Type 2 diabetes mellitus without complications; Z86.16 Personal history of COVID-19; Z90.49 Acquired absence of other specified parts of digestive tract; Z91.048 Other nonmedicinal substance allergy status; Z79.82 Long term (current) use of aspirin; Z79.899 Other long term (current) drug therapy | CPT/HCPCS: 99283 ==

== ENCOUNTER 2025-03-06 07:48 | Day surgery (SDC) | payer BC, OTHER ==
[~2025-03-06 07:48] MED LIST: Midazolam 1 MG/ML 2 ML SDV ONE; Propofol 200 MG/20 ML SDV ONE; fentaNYL 50 MCG/ML SDV ONE
[2025-03-06] MEDS: Lactated Ringers 1,000 ML IV SCH (08:13)
== END 2025-03-06 11:25 | disposition home or self-care (01) ==
LOC: JP.SDS 07:48
PROVIDERS: ATTEND Surgery
DX: Z12.11 Encounter for screening for malignant neoplasm of colon (principal); K63.5 Polyp of colon; I10 Essential (primary) hypertension; E11.9 Type 2 diabetes mellitus without complications; K21.9 Gastro-esophageal reflux disease without esophagitis; Z79.82 Long term (current) use of aspirin; Z79.899 Other long term (current) drug therapy
CPT/HCPCS: 00811; 45380; 88305; J2250; J2704; J3010; J7120